=== PATIENT | female | born 1975 | race Caucasian/White ===

== ENCOUNTER 2016-08-14 16:28 | Observation (INO) | payer BC ==
[~2016-08-14] VITALS: Ht 157.5 cm; Wt 64.3 kg
[~2016-08-14 16:28] MED LIST: ADVIL,NUPRIN,M200 MG PO; ASPIR-TRIN325 M1 PO; FLONASE16 G1 BOTH NARES; HAIR, SKIN & N1 EAC1 PO
[2016-08-14] MEDS ORDERED: METHYLPHENIDATE36 MG PO (16:44)
[2016-08-14] MEDS ORDERED: LO-DOSE ASPIRIN81 M2 PO (16:44)
[2016-08-14 17:06] LABS: EOSINOPHIL (%) 0 % (0-5); HEMATOCRIT 35.8 % (36.0-46.0); IMMATURE GRANULOCYTE (%) 0.2 % (0.0-0.7); INSTRUMENT ABS NEUTROPHIL CT 3.2 K/uL; LYMPHOCYTE COUNT 1.8 K/uL (1.0-2.8); MCH 23.8 PG (29.0-34.0); MCHC 30.7 G/DL (30.0-36.0); MCV 77.5 FL (83-99); MEAN PLAT.VOLUME 8.9 uM^3 (9.5-12.4); MONOCYTE (%) 6.3 % (3-12); MONOCYTE COUNT 0.3 K/uL (0-0.8); NEUTROPHIL (%) 59.1 % (45-76); NEUTROPHIL COUNT 3.2 K/uL (1.8-6.4); PLATELET COUNT 264 K/uL (156-360); RBC DIS.WIDTH-CV 16.7 % (11.8-14.6); RBC DIS.WIDTH-SD 47.2 % (39-53); RED BLOOD COUNT 4.62 M/uL (3.80-5.20); WHITE BLOOD COUNT 5.4 K/uL (4.1-10.2)
[2016-08-14 17:17] LABS: CHLORIDE 107 mEq/L (99-109); SODIUM 139 mEq/L (136-147)
[2016-08-14 17:19] LABS: GLUCOSE 99 mg/dL (70-99)
[2016-08-14 17:20] LABS: ANION GAP 11 MEQ/L (2-14); D-DIMER ELISA 0.53 mg/L FEU (< 0.57); INTER. NORMALIZED RATIO 1.1; PROTHROMBIN TIME 11.1 (9.2-11.2)
[2016-08-14 17:23] LABS: GFR ESTIMATE (CALCULATED) > 59 mL/min/
[2016-08-14 17:24] LABS: UREA NITROGEN (BUN) 11 mg/dL (9-23)
[2016-08-14 17:31] LABS: TROP-I INTERPRETATION NEGATIVE; TROPONIN-I < 0.01 ng/mL (0.0-0.30)
[2016-08-14 19:12] LABS: QUANTITATIVE HCG < 4.0 MIU/ML
[2016-08-14 21:54] LABS: D-DIMER ELISA 0.42 mg/L FEU (< 0.57)
[2016-08-14 22:20] VITALS: BP 115/75
[2016-08-15 01:07] LABS: TROP-I INTERPRETATION NEGATIVE; TROPONIN-I < 0.01 ng/mL (0.0-0.30)
[2016-08-15 03:47] VITALS: BP 116/58
[2016-08-15 06:09] LABS: MCH 24.2 PG (29.0-34.0); MCHC 30.9 G/DL (30.0-36.0); MCV 78.5 FL (83-99); MEAN PLAT.VOLUME 9.6 uM^3 (9.5-12.4); PLATELET COUNT 268 K/uL (156-360); RBC DIS.WIDTH-CV 16.8 % (11.8-14.6); RBC DIS.WIDTH-SD 48.3 % (39-53); RED BLOOD COUNT 4.46 M/uL (3.80-5.20)
[2016-08-15 06:29] LABS: ANION GAP 8 MEQ/L (2-14); CHLORIDE 109 MEQ/L (99-109); GFR ESTIMATE (CALCULATED) > 59 mL/min/; GLUCOSE 95 mg/dL (70-99); POTASSIUM 3.8 MEQ/L (3.7-5.4); SAMPLE HEMOLYSIS CHECK 0; SAMPLE ICTERIC CHECK 0; SAMPLE LIPEMIA CHECK 0; SODIUM 141 MEQ/L (136-147); TROP-I INTERPRETATION NEGATIVE; TROPONIN-I < 0.01 ng/mL (0.0-0.30); UREA NITROGEN (BUN) 12 mg/dL (9-23)
[2016-08-15 07:05] VITALS: BP 111/60
[2016-08-15 11:44] VITALS: BP 139/89
== END 2016-08-15 14:55 | disposition home or self-care (01) ==
LOC: EME 16:28 → EDOF 21:11 → 5WEST 22:03
PROVIDERS: Emergency Medicine; Hospitalist
DX: R07.89 Other chest pain (principal); R10.13 Epigastric pain; R00.2 Palpitations; R55 Syncope and collapse; R51 Headache; R94.31 Abnormal electrocardiogram [ECG] [EKG]; F17.210 Nicotine dependence, cigarettes, uncomplicated; Z95.3 Presence of xenogenic heart valve
CPT/HCPCS: 70551; 71010; 80048; 84484; 84702; 85025; 85027; 85379; 85610; 85730; 93005; 99281; 99284; G0378; J1644

== ENCOUNTER → 2016-08-30 | Outpatient (CLI) | payer BC ==
[~2016-08-30] MED LIST changes: +LO-DOSE ASPIRIN81 M2 PO; +METHYLPHENIDATE36 MG PO
== END | disposition home or self-care (01) ==
LOC: EEG 09:55
DX: R41.3 Other amnesia (principal)
CPT/HCPCS: 95819